=== PATIENT | female | born 1990 | race Two or more races ===

== ENCOUNTER 2021-06-07 15:30 | Inpatient (IN) | payer OTHER ==
[~2021-06-07] VITALS: Ht 157.5 cm; Wt 68.9 kg
[2021-06-24] MEDS ORDERED: ROBITUSSIN COL237 ML PO (17:03)
[2021-06-24] MEDS ORDERED: PRENATAL TABLE1 EAC1 PO (17:04)
[2021-06-24] MEDS ORDERED: ZYRTEC10 M3 PO (17:04)
== END 2021-06-27 14:15 | disposition home or self-care (01) | DRG 807 ==
LOC: LDR 06-24 15:35 → SURG-SUITE 06-25 11:50 → LDR 06-28 15:30
PROVIDERS: ADMIT Obstetrics & Gynecology; ATTEND Obstetrics & Gynecology
PROC: 4A1HXFZ Monitoring of Products of Conception, Cardiac Rhythm, External Approach (ICD-10-PCS; 2021-06-24)
PROC: 10E0XZZ Delivery of Products of Conception, External Approach (ICD-10-PCS; principal; 2021-06-25)
PROC: 0W8NXZZ Division of Female Perineum, External Approach (ICD-10-PCS; 2021-06-25)
PROC: 10907ZC Drainage of Amniotic Fluid, Therapeutic from Products of Conception, Via Natural or Artificial Opening (ICD-10-PCS; 2021-06-25)
DX: O80 Encounter for full-term uncomplicated delivery (principal); Z37.0 Single live birth; Z3A.39 39 weeks gestation of pregnancy

== ENCOUNTER → 2021-06-20 | Outpatient (CLI) | payer OTHER | END | disposition home or self-care (01) | LOC: NST 16:10 | PROVIDERS: ATTEND Obstetrics & Gynecology Maternal & Fetal Medicine | DX: Z34.83 Encounter for supervision of other normal pregnancy, third trimester (principal) ==

== ENCOUNTER 2023-01-10 13:24 | Outpatient (CLI) | payer OTHER ==
[~2023-01-10 13:24] MED LIST: PRENATAL TABLE1 EAC1 PO; ROBITUSSIN COL237 ML PO; ZYRTEC10 M3 PO
== END 2023-01-10 13:50 | disposition home or self-care (01) ==
LOC: NST 13:24
PROVIDERS: ATTEND Obstetrics & Gynecology Maternal & Fetal Medicine
DX: Z34.83 Encounter for supervision of other normal pregnancy, third trimester (principal)

== ENCOUNTER 2023-01-16 13:04 | Outpatient (CLI) | payer OTHER | END 2023-01-16 14:26 | disposition home or self-care (01) | LOC: NST 13:04 | PROVIDERS: ATTEND Obstetrics & Gynecology Maternal & Fetal Medicine | DX: Z34.83 Encounter for supervision of other normal pregnancy, third trimester (principal) ==

== ENCOUNTER 2023-03-02 11:19 | Outpatient (CLI) | payer OTHER | END 2023-03-02 13:40 | disposition home or self-care (01) | LOC: NST 11:19 | PROVIDERS: ATTEND Obstetrics & Gynecology | DX: Z34.83 Encounter for supervision of other normal pregnancy, third trimester (principal) ==

== ENCOUNTER 2023-03-05 10:44 | Outpatient (CLI) | payer OTHER | END 2023-03-05 12:29 | disposition home or self-care (01) | LOC: NST 10:44 | PROVIDERS: ATTEND Obstetrics & Gynecology | DX: Z34.83 Encounter for supervision of other normal pregnancy, third trimester (principal) ==